=== PATIENT | male | born 1965 | race Caucasian/White ===

== ENCOUNTER 2017-07-21 07:29 | Inpatient (IN) | payer OTHER ==
[~2017-07-21] VITALS: Ht 160 cm; Wt 59.0 kg
--- NOTE | ~2017-07-21 | PN ---
Unit #: [id number] #: [id number] Patient: HOLLY HALL [id number] [facility] [address] [place] [address] [id number] MR#: [id number] NAME: HOLLY HALL. ROOM: P207 Age: 52 Sex: M Admission Date: 07/21/2017 : 1965 Attending Physician: Rowdy Teran M.D. Admitting Physician: Rowdy Teran M.D. Primary Care Physician: Generic Doctor Not In System [facility] PROGRESS NOTES DATE 07/23/2017 DISCUSSION Mr. Hall has mild to moderate detox symptoms today. His mood is a little irritable with a congruent affect. He is alert and fully oriented with no active psychosis. He continues to deny SI. ASSESSMENT Alcohol dependence, opiate dependence. PLAN We will continue current treatment plan to anticipate discharge soon. Dictated by... Rowdy Teran M.D. [facility]/ts TD: 07/26/2017 09:42 JOB #: [id number] [facility] PROGRESS NOTES Page 1 of 1 X Rowdy Teran MD X PROGRESS NOTE
--- NOTE | ~2017-07-21 | HP ---
Unit #: [id number] #: [id number] Patient: CLEVELAND HALL [id number] [place] [address] [id number] MR#: [id number] NAME: CLEVELAND HALL. ROOM: [facility] Age: 52 Sex: M Admission Date: 07/21/2017 : 1965 Attending Physician: Rowdy Teran M.D. Admitting Physician: Rowdy Teran M.D. Primary Care Physician: Generic Doctor Not In System HISTORY AND PHYSICAL HISTORY OF PRESENT ILLNESS [place] is a 52 year old admitted to [address] [place] [address] because of his drug use. He shoots heroin. PAST MEDICAL HISTORY Long history of opioid abuse to include IV heroin. PAST SURGICAL HISTORY Nothing reported. ALLERGIES No known drug allergies. SOCIAL HISTORY Smokes 1 pack per day. Drinks alcohol rarely. Admits to a long history of opioid abuse to include IV heroin. FAMILY HISTORY Medically noncontributory. REVIEW OF SYSTEMS CONSTITUTIONAL: No fever or chills. HEENT: Denies any sore throat, ear pain or runny nose. CARDIOVASCULAR: Denies chest pain, irregular heart rhythm or palpitations. CHEST: Denies shortness of breath or cough. No hemoptysis. GASTROINTESTINAL: He does report stomach cramps and diarrhea. ENDOCRINE: Denies history of increased thirst or urination. No recent significant weight loss or gain. GENITOURINARY: Denies dysuria, frequency, or hematuria. SKIN: Denies any rashes. HEMATOLOGIC: Denies history of increased bleeding or bruising. MUSCULOSKELETAL: Denies any hot, swollen joints. No generalized muscle pain. NEUROLOGIC: Denies problems with vision or speech. No frequent, severe headaches. No numbness, tingling or weakness in any extremities. Denies loss of bladder or bowel control. CURRENT MEDICATIONS Detox protocol. PHYSICAL EXAMINATION GENERAL: Alert, well-nourished, in no apparent distress. VITAL SIGNS: Blood pressure 162/94, heart rate 80, respirations 16, Unit #: [id number] #: [id number] Patient: CLEVELAND HALL temperature 98.6. WEIGHT: 130. HEIGHT: 5 feet 3 inches. SKIN: Warm and dry without rash. He does have a partially healed sore along his left index finger. There is no increased redness, swelling, heat or pus noted. HEENT: Normocephalic. TMs not viewed. Oral and nasal passages clear. Conjunctivae clear. PERRLA. EOMs intact. NECK: Supple without lymphadenopathy or thyromegaly. HEART: Regular rate and rhythm without murmur. LUNGS: Clear. ABDOMEN: Soft, nontender. : Not done. EXTREMITIES: No evidence of cyanosis, clubbing or edema. Moves all without focal deficit. NEUROLOGICAL: Unable to complete extended exam. He does move all extremities without focal deficit. 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 IMPRESSION Psychiatric admission. RECOMMENDATIONS PSYCHIATRIC: Per psychiatrist. MEDICAL: 1. See no contraindication to participate in facility's activities. 2. Detox per protocol. 3. Keep the sore on his finger clean with soap and water. No further Rx. MEDICAL PROGNOSIS Good. MEDICAL CONDITION Stable. Dictated by... Carli Cardenas P.A.-C. for Vesna Ghosh/jerri TD: 07/21/2017 17:24 JOB #: [id number] HISTORY AND PHYSICAL Page 1 of 1 X Carli Cardenas HISTORY AND PHYSICAL
--- NOTE | ~2017-07-21 | PA ---
Unit #: [id number] #: [id number] Patient: HOLLY HALL [id number] [facility] [address] [place] [address] [id number] I MR#: [id number] NAME: HOLLY HALL. ROOM: P207 Age: 52 Sex: M Admission Date: 07/21/2017 : 1965 Date of Assessment: 07/22/2017 Attending Physician: Rowdy Teran M.D. Admitting Physician: Rowdy Teran M.D. Primary Care Physician: Generic Doctor Not In System PSYCHIATRIC ASSESSMENT DATE OF SERVICE 07/22/2017. INFORMANTS The patient, reliable and OLOP, reliable. CHIEF COMPLAINT Alcohol use. HISTORY OF PRESENT ILLNESS Mr. Hall is a 52-year-old man, who reports he is withdrawing from both heroin and alcohol. He says he "feels terrible," but denied suicidal ideation, intent, or plan. He was admitted for polysubstance detox. PAST PSYCHIATRIC HISTORY The patient reports he was at this facility in the remote past, but these records are not available. He does not take psychiatric medications. FAMILY PSYCHIATRIC HISTORY None reported. SOCIAL HISTORY The patient denied a history of childhood abuse or neglect. 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 He is living with his mother and daughter. PAST MEDICAL HISTORY No chronic medical problems. MEDICATIONS None currently. ALLERGIES No known medication allergies. SUBSTANCE USE HISTORY As noted, the patient has been abusing both alcohol and heroin. MENTAL STATUS EXAMINATION The patient presented as a mildly disheveled man, who appeared older than his stated age. He was cooperative with the examination. His speech was spontaneous and easily understood. Musculoskeletal examination was calm. His mood was anxious with a congruent affect. He was alert and fully Unit #: [id number] #: [id number] Patient: HOLLY HALL oriented. Memory and concentration were fair. Thought processes were goal directed with no active psychosis. He denied suicidal ideation, intent, or plan. Insight and judgment, fair. Fund of knowledge and abstraction, fair. ASSETS AND LIABILITIES The patient knows local resources and presents voluntarily for treatment. Liabilities include ongoing substance abuse with no significant sobriety. ADMITTING DIAGNOSES AXIS I: Alcohol dependence with withdrawal, uncomplicated and opioid dependence with withdrawal. AXIS II: No diagnosis. AXIS III: Polysubstance withdrawal. AXIS IV: AXIS V: PSYCHIATRIC PLAN The patient was admitted and placed on the alcohol detox protocol with the addition of Neurontin for opioid detox symptoms. He will enroll in psychotherapy groups and activities. TREATMENT GOALS Establishment of sobriety, improvement in insight, and improvement in coping skills. DISCHARGE PLANNING Follow up with community mental health and chemical dependence resources. ESTIMATED LENGTH OF STAY 5 days. Dictated by... Rowdy Teran M.D. CLARENCE/jesse TD: 07/23/2017 17:38 JOB #: [id number] PSYCHIATRIC ASSESSMENT Page 1 of 1 X Rowdy Teran MD X PSYCHIATRIC ASSESSMENT
--- NOTE | ~2017-07-21 | DS ---
Unit #: [id number] #: [id number] Patient: HOLLY HALL [id number] [facility] [address] [place] [address] [id number] I MR#: [id number] NAME: HOLLY HALL. ROOM: [facility] Age: 52 Sex: M Admission Date: 07/21/2017 : 1965 Discharge Date: 07/24/2017 Attending Physician: Rowdy Teran M.D. Primary Care Physician: Generic Doctor Not In System DISCHARGE SUMMARY REASON FOR ADMISSION Mr. Hall is a 52-year-old man, who presented reporting difficulty with alcohol detox. He was in an acutely intoxicated state, but denied suicidal ideation, intent, or plan. He also reported the use of heroin. He was unable to quantify which was "the worse" and was admitted for detox. DIAGNOSTIC STUDIES LABORATORY RESULTS: Please see hospital chart. HOSPITAL COURSE The patient was admitted and placed on the alcohol detox protocol for higher risk seizure activity with the addition of Neurontin 600 mg every 6 hours as needed for opioid detox symptoms. He participated appropriately in unit groups and activities and had no significant detox sequelae during his admission. He denied any further suicidal ideation, intent, or plan throughout the hospitalization and was able to contract for safety on the date of discharge. DISCHARGE DIAGNOSES AXIS I: Alcohol dependence with withdrawal, uncomplicated and opioid dependence with withdrawal, uncomplicated. AXIS II: No diagnosis. AXIS III: Polysubstance withdrawal, resolved. AXIS IV: AXIS V: DISCHARGE INSTRUCTIONS Follow up with primary care physician and community mental health. DISCHARGE MEDICATIONS None. CONDITION AT DISCHARGE Fair. PROGNOSIS Fair if the patient maintains sobriety and followup. DIET AND ACTIVITY Per primary care doctor. Unit #: [id number] #: [id number] Patient: HOLLY HALL Dictated by... Rowdy Teran M.D. [facility]/modl TD: 07/24/2017 19:11 JOB #: [id number] DISCHARGE SUMMARY Page 1 of 1 X Rowdy Teran MD X DISCHARGE SUMMARY
[2017-07-22 13:19] LABS: BASOPHIL% 0.2 % (0-2.5); EOSINOPHIL# 0.1 X10e3 (0-0.7); EOSINOPHIL% 0.7 % (0.0-7.0); HEMATOCRIT 49.3 % (38.0-50.0); HEMOGLOBIN 17.3 gm/dL (13.0-16.0); LYMPHOCYTE# 1.5 X10e3 (1.0-3.5); LYMPHOCYTE% 13.3 % (17.0-45.0); MEAN CELL VOLUME 95.8 FL (83-96); MEAN CORPUSCULAR HEMOGLOBIN 33.5 PG (28-34); MEAN PLATELET VOLUME 7.7 FL (6.5-11.5); MONOCYTE# 0.6 X10e3 (0-1.0); MONOCYTE% 5.8 % (3.0-12.0); PLATELET COUNT 163 X10e3 (140-420); RED BLOOD COUNT 5.15 X10e (3.90-5.60); WHITE BLOOD COUNT 11.3 X10e3 (4.0-10.5)
[2017-07-22 13:32] LABS: ALBUMIN SERUM 4.1 g/dL (3.5-5.0); BILIRUBIN,TOTAL 1.6 mg/dL (0.2-2.0); BUN/CREATININE RATIO 17.5; CALCIUM SERUM 9.5 mg/dL (8.4-10.2); CREATININE SERUM 0.8 mg/dL (0.6-1.4); GLOM FILT RATE Estimated 103.5 mL/min (>60); POTASSIUM 3.9 mmol/L (3.5-5.1); PROTEIN TOTAL SERUM 7.4 g/dL (6.0-8.3)
[2017-07-22 13:56] LABS: DIFF IND NO
== END 2017-07-24 12:33 | DRG 897 ==
LOC: P2S 08:44
PROVIDERS: Psychiatry & Neurology Psychiatry
PROC: HZ2ZZZZ Detoxification Services for Substance Abuse Treatment (ICD-10-PCS; principal; 2017-07-22)
DX: F10.239 Alcohol dependence with withdrawal, unspecified (principal); F11.23 Opioid dependence with withdrawal
CPT/HCPCS: 80053; 85025; J2550